=== PATIENT | female | born 2000 | race Caucasian/White ===

== ENCOUNTER 2018-01-16 12:34 | Emergency (ER) | payer OTHER ==
[~2018-01-16] VITALS: Ht 160 cm; Wt 81.8 kg
[2018-01-16 12:40] VITALS: TEMP 98.8
[2018-01-16 13:52] LABS: ALBUMIN 3.9 gm/dL (3.5-5.0); BASO % 0.4 % (0.0-2.0); BILIRUBIN,TOTAL 0.2 mg/dL (0.0-1.0); CREATININE, serum 0.47 mg/dL (0.52-1.25); EOS # 0.1 (0.0-0.7); EOS % 0.9 % (0-4.0); GRAN # 5.3 (1.4-6.5); GRAN % 69.5 % (42.2-75.2); HEMOGLOBIN 11.5 g/dl (12.0-15.0); LYMPH # 1.7 (1.2-3.4); LYMPH % 21.9 % (20.0-51.0); MEAN CELL VOLUME 86 fl (80.0-95.0); MEAN CORPUSCULAR HEMOGLOBIN 29 pg (26.0-32.0); MEAN CORPUSCULAR HGB CONC 34 g/dl (33.0-37.0); MONO # 0.5 (0.1-0.6); MONO % 6.1 % (1.7-9.3); PLATELET COUNT 235 K/mm3 (130-400); POTASSIUM 3.9 mmol/L (3.4-5.0); RED BLOOD COUNT 3.97 M/mm3 (4.10-5.30); REDCELL DISTRIBUTION WIDTH-CV 12.4 % (11.5-14.5)
[2018-01-16 13:55] LABS: PH 8 (5-8); SQUAMOUS EPITHELIAL 0-2 /hpf; URINE APPEARANCE Clear; URINE BACTERIA Rare /hpf; URINE BILIRUBIN Negative (NEGATIVE); URINE BLOOD Negative (NEGATIVE); URINE COLOR Yellow; URINE GLUCOSE Negative (NEGATIVE); URINE KETONE Negative (NEGATIVE); URINE LEUKOCYTE ESTERASE Negative (NEGATIVE); URINE NITRATE Negative (NEGATIVE); URINE PROTEIN(semi-quant) Negative (NEGATIVE); URINE RBC 0-2 /hpf; URINE UROBILINOGEN Negative (NEGATIVE); URINE WBC 0-2 /hpf
[2018-01-16 14:24] LABS: COLLECTION METHOD CLEAN CATCH
[2018-01-16 14:48] VITALS: BP 121/63
[2018-01-16 15:30] VITALS: PULSE 88
== END 2018-01-16 15:31 | disposition home or self-care (01) ==
LOC: COL.ER 12:34
PROVIDERS: Nurse Practitioner Primary Care
DX: R51 Headache (principal)